=== PATIENT | female | born 1970 | race African-American/Black ===

== ENCOUNTER 2017-07-16 11:11 | Emergency (ER) | payer OTHER ==
[2017-07-16 12:31] LABS: Basophils # (A) 0.1 k/uL (0-0.2); Basophils % (A) 1 %; Eosinophils # (A) 0.1 k/uL (0-0.7); Eosinophils % (A) 2 %; HCT 42.5 % (34.0-46.0); HGB 14.2 gm/dL (11.4-16.0); Lymphocytes # (A) 3.6 k/uL (1.0-4.8); Lymphocytes % (A) 42 %; MCH 28.9 pg (25.0-35.0); MCHC 33.3 g/dL (31.0-37.0); MCV 86.8 fL (80.0-100.0); Mean Platelet Volume 6.6; Monocytes # (A) 0.6 k/uL (0-1.0); Monocytes % (A) 7 %; Neutrophils # (A) 4.1 k/uL (1.3-7.7); Neutrophils % (A) 47 %; Platelet Count 239 k/uL (150-450); RDW 13.3 % (11.5-15.5); WBC 8.7 k/uL (3.8-10.6)
[2017-07-16 12:41] LABS: ALT 25 U/L (9-52); AST 16 U/L (14-36); Albumin 3.8 g/dL (3.5-5.0); Alkaline Phosphatase 48 U/L (38-126); Anion Gap 7 mmol/L; Blood Urea Nitrogen 9 mg/dL (7-17); Calcium 9.6 mg/dL (8.4-10.2); Carbon Dioxide 28 mmol/L (22-30); Chloride 106 mmol/L (98-107); Glucose 58 mg/dL (74-99); Potassium 3.8 mmol/L (3.5-5.1); Sodium 141 mmol/L (137-145); Total Bilirubin 0.7 mg/dL (0.2-1.3)
--- NOTE | 2017-07-16 13:38 | ED ---
General Adult HPI - General Chief complaint: Abdominal Pain Stated complaint: abdominal pain Time Seen by Provider: 07/16/17 11:54 Source: patient, RN notes reviewed Mode of arrival: ambulatory Limitations: no limitations - History of Present Illness Initial comments: 46-year-old female who presents emergency room today with chief complaint of needing ultrasound. She states that she has been followed the family doctor. She states that she's had some discomfort in the left lower quadrant and also some pain in the incision site of the right lower quadrant. Patient doesn't that she had a hysterectomy 3 years ago. She states she's had this bump in this area ever since. States is never bothered. States that 2 weeks ago saw the family doctor who is pushing out. She states that after that time she began having increased pain with it. She states that she's noticed that has been some increased pain and swelling to the area. She does admit that she went to the ER at [facility] and was started on antibiotic. She states she went back again yesterday and was told that she could discontinue the antibiotic but to follow-up with his surgeon. She states she is waiting to get into the surgeon. She states that she followed with the family doctor advised come here to the emergency room to have an ultrasound obtained. Patient denies any complaints or associated symptoms at this time. Patient denies any recent fever, chills, shortness of breath, chest pain, back pain, nausea or vomiting, numbness or tingling, dysuria or hematuria, constipation or diarrhea, headaches or visual changes, or any other complaints. - Related Data Home Medications Medication Instructions Recorded Confirmed Cephalexin [Keflex] 500 mg PO TID 07/16/17 07/16/17 Ergocalciferol (Vitamin D2) 50,000 unit PO WHITE 07/16/17 07/16/17 [Vitamin D2] Allergies Allergy/AdvReac Type Severity Reaction Status Date / Time No Known Allergies Allergy Verified 07/16/17 11:55 Review of Systems ROS Statement: Those systems with pertinent positive or pertinent negative responses have been documented in the HPI. ROS Other: All systems not noted in ROS Statement are negative. Past Medical History Past Medical History: No Reported History History of Any Multi-Drug Resistant Organisms: None Reported Past Surgical History: Hysterectomy Past Psychological History: No Psychological Hx Reported Smoking Status: Current every day smoker Past Alcohol Use History: Occasional Past Drug Use History: Marijuana General Exam - General Exam Comments Initial Comments: General: The patient is awake and alert, in no distress, and does not appear acutely ill. Eye: Pupils are equal, round and reactive to light, extra-ocular movements are intact. No nystagmus. There is normal conjunctiva bilaterally. No signs of icterus. Ears, nose, mouth and throat: There are moist mucous membranes and no oral lesions. Neck: The neck is supple, there is no tenderness or JVD. Cardiovascular: There is a regular rate and rhythm. No murmur, rub or gallop is appreciated. Respiratory: Lungs are clear to auscultation, respirations are non-labored, breath sounds are equal. No wheezes, stridor, rales, or rhonchi. Gastrointestinal: Patient does have surgical incision site right lower quadrant with some mild swelling locally. Locally tender in this area. Abdomen is soft nontender other areas. No rebound tenderness, guarding or CVA tenderness. Musculoskeletal: Normal ROM, no tenderness. Strength 5/5. Sensation intact. Pulses equal bilaterally 2+. Neurological: A&O x 3. CN II-XII intact, There are no obvious motor or sensory deficits. Coordination appears grossly intact. Speech is normal. Skin: Skin is warm and dry and no rashes or lesions are noted. Psychiatric: Cooperative, appropriate mood & affect, normal judgment. Limitations: no limitations Course Vital Signs 07/16/17 07/16/17 07/16/17 11:33 12:21 13:13 Temperature 97.9 F Pulse Rate 87 76 Respiratory 18 19 17 Rate Blood Pressure 128/74 134/79 O2 Sat by Pulse 100 100 Oximetry 07/16/17 07/16/17 14:50 15:04 Temperature 98.1 F 98.6 F Pulse Rate 93 85 Respiratory 18 16 Rate Blood Pressure 180/88 139/82 O2 Sat by Pulse 100 100 Oximetry Medical Decision Making - Medical Decision Making Patient's ultrasound of the right lower quadrant shows a hypoechoic area visualized measuring 1.41.52.7 cm. There is vascular flow within. Lesion shows lobular contour as well defined fixed echoes. These results were discussed with the attending physician Dr. Spain did discuss the case with on- call LO[employer]ER Dr. Bejarano who states that the patient may follow-up with him in the office over the next 2 days. Patient has been updated of this plan states understanding and is in agreement. - Lab Data Result diagrams: 07/16/17 12:14 07/16/17 12:14 Lab Results 07/16/17 07/16/17 Range/Units 12:14 12:14 WBC 8.7 (3.8-10.6) k/uL RBC 4.90 (3.80-5.40) m/uL Hgb 14.2 (11.4-16.0) gm/dL Hct 42.5 (34.0-46.0) % MCV 86.8 (80.0-100.0) fL MCH 28.9 (25.0-35.0) pg MCHC 33.3 (31.0-37.0) g/dL RDW 13.3 (11.5-15.5) % Plt Count 239 (150-450) k/uL Neutrophils % 47 % Lymphocytes % 42 % Monocytes % 7 % Eosinophils % 2 % Basophils % 1 % Neutrophils # 4.1 (1.3-7.7) k/uL Lymphocytes # 3.6 (1.0-4.8) k/uL Monocytes # 0.6 (0-1.0) k/uL Eosinophils # 0.1 (0-0.7) k/uL Basophils # 0.1 (0-0.2) k/uL Sodium 141 (137-145) mmol/L Potassium 3.8 (3.5-5.1) mmol/L Chloride 106 (98-107) mmol/L Carbon Dioxide 28 (22-30) mmol/L Anion Gap 7 mmol/L BUN 9 (7-17) mg/dL Creatinine 0.70 (0.52-1.04) mg/dL Est GFR (CKD-EPI)AfAm >90 (>60 ml/min/1.73 sqM) Est GFR (CKD-EPI)NonAf >90 (>60 ml/min/1.73 sqM) Glucose 58 L (74-99) mg/dL Calcium 9.6 (8.4-10.2) mg/dL Total Bilirubin 0.7 (0.2-1.3) mg/dL AST 16 (14-36) U/L ALT 25 (9-52) U/L Alkaline Phosphatase 48 (38-126) U/L Total Protein 7.0 (6.3-8.2) g/dL Albumin 3.8 (3.5-5.0) g/dL Disposition Clinical Impression: Abdominal wall mass Disposition: HOME SELF-CARE Condition: Good Instructions: Abdominal Pain (ED) Additional Instructions: Please follow-up with [facility] over the next 1-2 days. Please return to emergency room if the symptoms increase or worsen or for any other concerns. Referrals: Lola Figueroa MD [Primary Care Provider] - 1-2 days Hill Bejarano MD [STAFF PHYSICIAN] - 1-2 days Time of Disposition: 15:14
--- NOTE | 2017-07-16 13:44 | US ---
EXAMINATION TYPE: US abdomen limited DATE OF EXAM: 07/16/2017 COMPARISON: NONE CLINICAL HISTORY: Pain at old incision site. Hysterectomy 3 years ago, palp lump at that area now. Hypoechoic area visualized measuring 1.4 x 1.5 x 2.7 cm. There is vascular flow within. Lesion show s lobular contour is well-defined and mixed echoes. Limited ultrasound performed at the site of patient's palpable abnormality. Grayscale, color Doppler imaging performed. IMPRESSION: Abdominal wall mass. Consider surgical, TEST BORER consult.
[2017-07-16 15:05] VITALS: BP 139/82; PULSE 85; RESP 16; TEMP 98.6
== END 2017-07-16 15:27 | disposition home or self-care (01) ==
LOC: EC 11:11
DX: R19.03 Right lower quadrant abdominal swelling, mass and lump (principal); R10.31 Right lower quadrant pain; R10.32 Left lower quadrant pain; F17.200 Nicotine dependence, unspecified, uncomplicated; Z79.899 Other long term (current) drug therapy; Z90.710 Acquired absence of both cervix and uterus
CPT/HCPCS: 36415; 76705; 80053; 85025; 99284